=== PATIENT | female | born 1980 | race Caucasian/White ===

== ENCOUNTER → 2016-07-02 | Day surgery (SDC) | payer OTHER ==
[~2016-07-02] MED LIST: ACETAMINOPHEN PO; AFRIN NASAL SPR15 ML; AUGMENTIN PO; B12; CIPRO PO; CLINDAMYCIN HC300 MG PO; FERRO-TIME325 MG PO; FOLIC ACID PO; FOLIC ACID1 MG PO; IMPLANON68 MG/IMPL; IRON1 TA1 PO; IRON325 ( 652 PO; K-DUR20 ME1 PO; K-DUR20 ME2 PO; MACROBID100 M1 PO; MOTRIN400 M1 PO; NEXIUM PO; NEXIUM20 MG PO; NO MEDICATIONS; PERCOCET5/325 PO; PREDNISONE PO; SUDAFED PLUS PO; TAMIFLU75 M1 PO; VITAMIN B-1000 MCG/1 INJ; VITAMIN B12-FO1 EACH SUBQ; ZITHROMAX PO; ZOFRAN ODT4 MG PO
--- NOTE | ~2016-07-02 | OR ---
Unit #: [id number] #: [id number] Patient: KEN DOLAN [id number] [address] [address] [id number] MR#: [id number] NAME: KEN DOLAN ROOM: Date of Procedure: 07/02/2016 Admission Date: 07/02/2016 Surgeon: Phani Matthew M.D. : 1980 Attending Physician: Phani Matthew M.D. Primary Care Physician: Nory Beckett A.P.R.N. OPERATIVE REPORT PREOPERATIVE DIAGNOSES The patient is status post surgery for a gastrointestinal stromal tumor. She is status post Billroth II gastroenterostomy. She has come for history of nausea without any weight loss. The purpose of the endoscopy to see if there is any recurrent GIST tumor in the stomach. PROCEDURES PERFORMED Upper gastrointestinal endoscopy. POSTOPERATIVE DIAGNOSES The patient has postsurgical changes of gastrojejunostomy with a Billroth II gastroenterostomy. The anastomosis appeared healthy. There being no evidence of any abnormalities seen. RECOMMENDATIONS Reassurance is in order. The patient was advised to eat small frequent low residue meals. She will follow up in the office in 3 to 4 months' time. SEDATION USED MAC. DESCRIPTION OF PROCEDURE Following detailed explanation of potential risks and complications of an upper endoscopy, namely perforation, bleeding, and complications related to sedation, the patient was brought to GI lab and laid in the left lateral decubitus position. Lubricated tip of the Olympus video upper endoscope was passed through the bite block into the proximal esophagus under direct vision. The entire esophageal mucosa was examined and appeared normal. Z-line was nicely demarcated, there being no esophagitis or hiatus hernia. The scope was then advanced into the gastric cavity. A small gastric remnant with evidence of Billroth II gastroenteric anastomosis was seen. The anastomosis appeared healthy as did the jejunum. No mucosal abnormalities found in the gastric remnant. The scope was then withdrawn in the distal esophagus. The entire esophageal mucosa was examined all the way up to pharynx. No additional findings noted. The patient tolerated the procedure without any postprocedure complications. Dictated by... Phani Matthew M.D. Unit #: [id number] #: [id number] Patient: KEN DOLAN AK/modl TD: 07/03/2016 00:57 JOB #: [id number] CC: Felicitas Edgar M.D., Ph.D. OPERATIVE REPORT Page 1 of 1 X Phani Matthew MD PROCEDURE OPERATIVE NOTE
== END | disposition home or self-care (01) ==
LOC: COPS 07:51
PROVIDERS: Internal Medicine Gastroenterology
PROC: 0DJ08ZZ Inspection of Upper Intestinal Tract, Via Natural or Artificial Opening Endoscopic (ICD-10-PCS; principal; 2016-07-02 08:30)
DX: Z09 Encounter for follow-up examination after completed treatment for conditions other than malignant neoplasm (principal)
CPT/HCPCS: 84703; J2250; J3010